=== PATIENT | female | born 1980 | race Caucasian/White ===

== ENCOUNTER 2017-03-17 21:44 | Emergency (ER) | payer OTHER ==
[~2017-03-17] VITALS: Ht 165.1 cm; Wt 56.7 kg
[2017-03-17 22:00] VITALS: BP 131/82
--- NOTE | 2017-03-17 22:07 | Emergency Room Report ---
History of Present Illness General Chief Complaint: Skin Rash/Abscess Source: Patient Present Illness HPI Is a 36-year-old female with no significant past medical history. She presents with chief complaint of rectal pain. Onset for the last 3 days. Pain is 10 out of 10. Worse with sitting. She went to urgent care and had a CT scan done. It showed a small abscess in the periarea rectal area. She went to [facility] and waited for 3 hours. She couldn't tolerate any more so she came here. Denies any trauma. No fever chills but no nausea no vomiting. No drainage. Never had this problem before. Allergies: Coded Allergies: No Known Allergies (Unverified , 03/17/17) Patient History Past Medical History: see triage record, old chart reviewed Past Surgical History: none Pertinent Family History: none Social History: Denies: smoking Last Menstrual Period: mar 13 Now: No Immunizations: other Reviewed Nursing Documentation: PMH: Agreed, PSxH: Agreed Nursing Documentation-PMH Hx Asthma: Yes Hx Gastrointestinal Problems: Yes - IBS Review of Systems Eye: Denies: eye pain, blurred vision ENT: Denies: ear pain, nose congestion, throat swelling Respiratory: Denies: cough, shortness of breath Cardiovascular: Denies: chest pain, palpitations Gastrointestinal: Denies: abdominal pain, diarrhea, nausea, vomiting Musculoskeletal: Denies: back pain, joint pain Skin: Denies: rash Neurological: Denies: headache, numbness Endocrine: Denies: increased thirst, increased urine Hematologic/Lymphatic: Denies: easy bruising All Other Systems: negative except mentioned in HPI Physical Exam Vital Signs Date Time Temp Pulse Resp B/P (MAP) Pulse Ox O2 Delivery O2 Flow Rate FiO2 03/17/17 21:53 98.8 84 16 131/82 98 Room Air vitals normal Sp02 EP Interpretation: reviewed, normal General Appearance: well appearing, no apparent distress, alert Head: normocephalic, atraumatic Eyes: bilateral eye PERRL, bilateral eye EOMI ENT: hearing grossly normal, normal pharynx Neck: full range of motion, supple, no meningismus Respiratory: chest non-tender, lungs clear, normal breath sounds Cardiovascular #1: regular rate, rhythm, no murmur Gastrointestinal: normal bowel sounds, non tender, no mass, no organomegaly, no bruit, non-distended Musculoskeletal: back normal, gait/station normal, normal range of motion Psychiatric: mood/affect normal Skin: warm/dry Medical Decision Making Diagnostic Impression: Primary Impression: Perianal abscess ER Course Present with a small perianal abscess on the CT scan. It measured 1.8 x 1.5 x 1 cm. I felt a slight fullness to the right lower perianal area. Patient has minimal pain in that area. Questionable abscess on my ultrasound. I could aspirated but was unsuccessful. Patient tolerated procedure without any problem. If her a dose of clindamycin here. She has an appointment in to have days with a colorectal surgeon already. If things don't improve, she may need to go to the OR. We'll try antibiotic as an outpatient first. Last Vital Signs Date Time Temp Pulse Resp B/P (MAP) Pulse Ox O2 Delivery O2 Flow Rate FiO2 03/17/17 21:53 98.8 84 16 131/82 98 Room Air Status: improved Disposition: HOME, SELF-CARE Condition: Stable Scripts Hydrocodone/Acetaminophen 5-325* (HYDROCODONE/ACETAMINOPHEN 5-325*) 1 Each Tablet 1 TAB ORAL Q6H Y for For Pain, #20 TAB 0 Refills Prov: VIRGINIE MONTALVO M.D. 03/18/17 Clindamycin Hcl (CLINDAMYCIN HCL) 300 Mg Capsule 300 MG ORAL THREE TIMES A DAY, #21 CAP Prov: VIRGINIE MONTALVO M.D. 03/18/17 Additional Instructions: Keep the appointment with a colorectal surgeon on Thursday. Return if symptom worsen. VIRGINIE MONTALVO M.D. Mar 17, 2017 22:07
[2017-03-17] MEDS ORDERED: Clindamycin 600mg 50 ML IVPB ONE (23:00)
[2017-03-17] MEDS ORDERED: Norco 5mg/325mg tab ORAL ONE (23:00)
[2017-03-18] VITALS: BP 125/79
[2017-03-18] MEDS ORDERED: CLINDAMYCIN HC300 MG ORAL (00:19)
[2017-03-18] MEDS ORDERED: HYDROCODON-ACE1 EA15 ORAL (00:19)
[2017-03-18 00:30] VITALS: BP 125/79
== END 2017-03-18 00:30 | disposition home or self-care (01) ==
LOC: EMR 22:12
DX: K61.0 Anal abscess (principal); K58.9 Irritable bowel syndrome, unspecified; J45.909 Unspecified asthma, uncomplicated
CPT/HCPCS: 96365; 99284; S0077